=== PATIENT | female | born 1975 | race Caucasian/White ===

== ENCOUNTER 2019-02-24 10:46 | Emergency (ER) | payer OTHER ==
[~2019-02-24] VITALS: Ht 157.4 cm; Wt 93.0 kg
[~2019-02-24 10:46] MED LIST: B121000 MCG/1 IM; CIPRO500 MG PO; CLEOCIN150 MG PO; HYDROCODONE BIT1 T11 PO; LOMOTIL 0.025 M1 TA1 PO; NKHM; NORCO 325 MG-51 TAB PO; PERIDEX 480 ML480 ML PO; STOOL SOFTENER100 MG PO; WYMOX500 MG PO; ZANTAC150 MG PO; ZOFRAN ODT4 MG SL; ZOFRAN4 MG PO
[2019-02-24] MEDS ORDERED: IBUPROFEN600 MG PO (11:18)
[2019-02-24] MEDS ORDERED: AMOXICILLIN500 M2 PO (11:18)
== END 2019-02-24 11:32 | disposition home or self-care (01) ==
LOC: ED 10:46
DX: K02.9 Dental caries, unspecified (principal)

== ENCOUNTER 2019-06-10 07:32 | Emergency (ER) | payer OTHER ==
[~2019-06-10] VITALS: Ht 157.4 cm; Wt 83.9 kg
[~2019-06-10 07:32] MED LIST changes: +AMOXICILLIN500 M2 PO; +IBUPROFEN600 MG PO
[2019-06-10] MEDS ORDERED: Motrin,Rufen800 MG PO (08:13)
[2019-06-10] MEDS ORDERED: AMOXICILLIN875 MG PO (08:13)
== END 2019-06-10 08:19 | disposition home or self-care (01) ==
LOC: ED 07:32
DX: K04.7 Periapical abscess without sinus (principal); R13.10 Dysphagia, unspecified; Z79.899 Other long term (current) drug therapy; Z79.2 Long term (current) use of antibiotics

== ENCOUNTER 2021-03-25 18:41 | Emergency (ER) | payer OTHER ==
[~2021-03-25 18:41] MED LIST changes: +AMOXICILLIN875 MG PO; +Motrin,Rufen800 MG PO
== END 2021-03-25 20:33 | disposition home or self-care (01) ==
LOC: ED 18:41
DX: J06.9 Acute upper respiratory infection, unspecified (principal); Z20.822 Contact with and (suspected) exposure to COVID-19

== ENCOUNTER 2023-12-25 05:58 | Emergency (ER) | payer BC ==
[~2023-12-25] VITALS: Ht 157.4 cm; Wt 83.9 kg
[2023-12-25] MEDS ORDERED: Ketorolac Tromethamine 60 MG/2 ML VIAL IM ONE (06:15)
[2023-12-25] MEDS ORDERED: Amoxicillin/Clavulanate Pota 875 MG TAB PO ONE (06:15)
[2023-12-25] MEDS ORDERED: AMOX-CLAV 875-1 EACH PO (06:17)
[2023-12-25] MEDS ORDERED: MELOXICAM15 MG PO (06:17)
== END 2023-12-25 06:31 | disposition home or self-care (01) ==
LOC: ED 05:58
DX: K04.7 Periapical abscess without sinus (principal); K02.9 Dental caries, unspecified; Z98.51 Tubal ligation status; Z98.890 Other specified postprocedural states